=== PATIENT | male | born 1980 | race Caucasian/White ===

== ENCOUNTER 2023-06-24 14:11 | Emergency (ER) | payer MEDICAID ==
[~2023-06-24] VITALS: Ht 175.3 cm; Wt 72.0 kg
[2023-06-24 14:31] VITALS: BP 127/72; PULSE 98; RESP 18; TEMP 98.4
[2023-06-24 14:32] LABS: COVID AG,FIA SOURCE NASAL SWAB
[2023-06-24 15:07] LABS: SARS-COV2 (COVID) ANTIGEN,FIA Negative (Negative)
== END 2023-06-24 15:26 | disposition home or self-care (01) ==
LOC: EMS 14:18
DX: Z20.822 Contact with and (suspected) exposure to COVID-19 (principal); Z02.79 Encounter for issue of other medical certificate; F17.210 Nicotine dependence, cigarettes, uncomplicated; Z88.0 Allergy status to penicillin
CPT/HCPCS: 99283